=== PATIENT | female | born 1990 | race Caucasian/White ===

== ENCOUNTER → 2016-06-29 | Day surgery (SDC) | payer OTHER ==
[~2016-06-29] VITALS: Ht 172.7 cm; Wt 59.0 kg
[~2016-06-29] MED LIST: BUPIVACAINE HCL 0.25% 30 ML VIAL As Ordered ONE; CRAN125T PO; GLYCOPYRROLATE INJ 0.2 MG/ML 2 ML VIAL As Ordered ONE; KETOROLAC 60 MG/2 ML VIAL (J1885) As Ordered ONE; LIDOCAINE 2% INJ 100 MG/5 ML SDV (FOR ANES.) As Ordered ONE; LR 1,000 ML IV SCH; METOCLOPRAMIDE INJ 10MG/2ML VIAL (J2765) IV PRN; MIDAZOLAM INJ 2 MG/2 ML VIAL (J2250) As Ordered ONE; MONOTAB PO; NEOSTIGMINE 1MG/ML 5 ML SYRINGE (J2710) As Ordered ONE; ONDANSETRON 4MG/2ML VIAL (J2405) As Ordered ONE; ONDANSETRON 4MG/2ML VIAL (J2405) IV PRN; PERCOCET 5MG/325MG TAB PO PRN; PRENTAB55 PO; PROBCAP4 PO; PROPOFOL 200 MG/20 ML VIAL As Ordered ONE; ROCURONIUM BROMIDE 50 MG/5 ML VIAL As Ordered ONE; [UNRECOGNIZED DRUG - OTHER] PO; fentaNYL 100 MCG/2 ML INJECTION (J3010) As Ordered ONE; fentaNYL 100 MCG/2 ML INJECTION (J3010) IV PRN
[2016-06-29 13:54] LABS: CONTROL LINE HCG INT CTR LINE PRESENT
[2016-06-29 21:00] VITALS: BP 120/72
--- NOTE | 2016-07-01 20:48 | RO ---
DATE OF PROCEDURE: 06/29/2016 PREPROCEDURE DIAGNOSES: Bicornuate uterus, infertility. 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 SURGEON: Kendra Lewis MD PETROLE[employer] ENGINEERING PROFESSOR: Bette Wood MD CLINICAL SERVICE: Gynecology. INDICATION FOR OPERATION: Marycruz is a 25-year-old 1, para 0-0-1-0 who has been undergoing evaluation with our clinic. Originally she had a spontaneous miscarriage and had an ultrasound performed, which showed potential bicornuate uterus. On attempt to conceive again, she was unable to and underwent infertility evaluation. On her infertility evaluation, she had a hysterosalpingogram, which was read as left horn of uterus visualized with normal endometrial lining, left fallopian tube normal in caliber with spontaneous free spill into the peritoneum. They had re-read her MRI, which was performed in March 2016 and stated there was a complete bicornuate, bicollis uterus with possible extension of the septa into the proximal vagina, which may limit or prevent visualization of the right cervix during a speculum examination, and they advised repeat MRI with vaginal gel to further evaluate. At that time, Marycruz presented to me for thorough speculum examination to see if there were potentially two cervices with a vaginal septum, and in clinic I was unable to visualize more than one cervix and she had a normal-appearing vagina. However, we discussed performing laparoscopy and hysteroscopy to further evaluate her uterine anomaly, which she desired. MATERIAL FORWARDED TO LABORATORY: Pap smear of the right cervix. DESCRIPTION OF FINDINGS: Laparoscopic findings included uterus that appeared to have a Mullerian abnormality, either bicornuate versus didelphic from abdominal view. There was obvious endometrial implants all over the pelvis, most notably she had endometrial implants in the posterior cul-de-sac with adhesions, some of them were newer brown lesions and some older white scarred lesions. She had endometriosis implants along both fallopian tubes but the fimbriated ends looked to be normal in appearance. She had a small right ovarian cyst- simple cyst versus endometrioma. She had some endometriosis induced adhesions near the appendix with tethering of some of the mesentery to the abdominal wall and otherwise her left ovary was normal in appearance. The area around the bladder appeared to have no endometriosis lesions. She did have a normal appearing liver edge and the appendix itself was unable to be visualized given the pelvic adhesions in that area. Hysteroscopic findings included a normal appearing left horn of the uterus. Using the hysteroscopy for vaginoscopy and looking all along the right wall of the vagina, I was able to visualize finally the vaginal septum, which came within approximately 3 cm of the vaginal introitus. At that point, the hysteroscope could be maneuvered into the right vaginal area and the right cervix at that point was finally visualized and was normal in appearance. INFECTION CLASSIFICATION: II ESTIMATED BLOOD LOSS: 10 mL. URINE OUTPUT: Via Maldonado, 100 mL. IV FLUIDS: 1400 mL of lactated Ringers. OPERATION PERFORMED: Diagnostic laparoscopy, diagnostic hysteroscopy, and vaginoscopy. DESCRIPTION OF PROCEDURE: After obtaining informed consent, Marycruz was taken to the operating room. General endotracheal anesthesia was established, and she was placed in low lithotomy position. She was prepped and draped in the usual sterile fashion and placed in Trendelenburg position. A Maldonado catheter was placed, and a ring forceps with sponge was placed into the vagina to manipulate the uterus. At that point, she was taken out of the Trendelenburg position and a 5 mm incision was made in the infraumbilical fold beneath the subcutaneous tissue. Marylou clamp was used to spread the subcutaneous tissue. Lower abdominal wall was manually grabbed and lifted up and an Optiview trocar was placed at a 90-degree angle. The laparoscope was advanced through the port and intraabdominal placement was confirmed. Continuous flow of carbon dioxide began to establish a pneumoperitoneum at 15 mmHg pressure. We began to do an inspection in the pelvis using only the ring forceps with sponge in the vagina as a uterine manipulator; however, it became immediately obvious when she was placed in Trendelenburg position and the uterus was visualized that there was a uterine abnormality that would necessitate further maneuvering. So at that point, a 5 mm incision was made in her right lower quadrant, through which a 5 mm trocar was placed under direct visualization and at that point we did a thorough pelvic and abdominal survey, beginning at the anterior cul-de-sac, which was normal in appearance. The uterus was as described, somewhat heart shaped with an indentation at the fundus and what appeared a fibrous band along the center where the indent occurred. She had endometriosis implants along the right and left fallopian tubes, brown small lesions. Then in the posterior cul-de-sac she had quite a bit of endometriosis implants, some white scarring and some brown lesions with obvious adhesions induced by the endometriosis. There was some free fluid that consisted of blood within the pelvis. There was a right ovarian cyst, either a simple cyst versus a small endometrioma , and there were a few scattered endometriosis implants outside of the immediate pelvis, notably some adhesions at the mesentery around the area of the appendix. The appendix was not able to be visualized. She did have a normal appearing liver edge. At that point, we deflated the abdomen, removed the camera and turned our attention to the hysteroscopic portion of the procedure. The speculum was inserted into the vagina after the ring forceps with sponge was removed and the single toothed tenaculum was used to grasp the anterior segment of the cervix. The cervix was dilated sequentially using Hanks dilators. Hysteroscopic camera was then introduced to the fundus and the uterine cavity appeared normal. At that point, the camera was removed very slowly along the right wall of the uterus, the right wall of the cervix and then the right wall of the vagina. Finally, near the introitus, approximately 3 cm into the vaginal vault, a slit could be seen with another vaginal canal. Upon using the hysteroscopic camera to visualize, we could see a normal appearing right cervix. She therefore had two separate cervices with a very obvious vaginal septum, approximately 0.25 cm thick. I did obtain a Pap smear of the right cervix, but it was impossible to try to dilate and use the hysteroscope given the nature of the septum and difficulty visualizing. At that point, the tenaculum was removed from the left cervix. Total hemostasis was noted. The speculum was removed from the vagina and I turned my attention again to her abdomen. The trocars were removed from the abdomen, and #4-0 Monocryl was used to reapproximate the two laparoscopic port sites and Dermabond was applied overlying as a barrier on the skin. All counts were correct times two. She tolerated the procedure well. She was awakened from general anesthesia and taken to the recovery room in good condition. ELIZABETH
== END | disposition home or self-care (01) ==
LOC: M SDC 13:00
PROVIDERS: ATTEND Obstetrics & Gynecology
DX: Q51.10 Doubling of uterus with doubling of cervix and vagina without obstruction (principal); N73.6 Female pelvic peritoneal adhesions (postinfective); N80.3 Endometriosis of pelvic peritoneum; N97.2 Female infertility of uterine origin; N83.201 Unspecified ovarian cyst, right side; Z88.2 Allergy status to sulfonamides; Z79.899 Other long term (current) drug therapy
CPT/HCPCS: 36415; 49320; 57454; 58555; 84703; 85014; 85018; 86850; 86900; 86901; G0123; J1885; J2250; J2405; J2710; J3010

== ENCOUNTER → 2017-11-04 | Outpatient (REF) | payer OTHER | LOC: M LAB REF 17:07 | DX: N39.0 Urinary tract infection, site not specified (principal) ==

== ENCOUNTER → 2018-10-15 | Outpatient (REF) | payer OTHER ==
[~2018-10-15] MED LIST changes: -BUPIVACAINE HCL 0.25% 30 ML VIAL As Ordered ONE; -GLYCOPYRROLATE INJ 0.2 MG/ML 2 ML VIAL As Ordered ONE; -KETOROLAC 60 MG/2 ML VIAL (J1885) As Ordered ONE; -LIDOCAINE 2% INJ 100 MG/5 ML SDV (FOR ANES.) As Ordered ONE; -LR 1,000 ML IV SCH; -METOCLOPRAMIDE INJ 10MG/2ML VIAL (J2765) IV PRN; -MIDAZOLAM INJ 2 MG/2 ML VIAL (J2250) As Ordered ONE; -NEOSTIGMINE 1MG/ML 5 ML SYRINGE (J2710) As Ordered ONE; -ONDANSETRON 4MG/2ML VIAL (J2405) As Ordered ONE; -ONDANSETRON 4MG/2ML VIAL (J2405) IV PRN; -PERCOCET 5MG/325MG TAB PO PRN; -PROPOFOL 200 MG/20 ML VIAL As Ordered ONE; -ROCURONIUM BROMIDE 50 MG/5 ML VIAL As Ordered ONE; -fentaNYL 100 MCG/2 ML INJECTION (J3010) As Ordered ONE; -fentaNYL 100 MCG/2 ML INJECTION (J3010) IV PRN
== END ==
LOC: M LAB REF 14:34
PROVIDERS: ATTEND Physician Assistant
DX: R30.0 Dysuria (principal)